=== PATIENT | male | born 1965 | race Hispanic/Latino ===

== ENCOUNTER 2018-01-10 05:50 | Day surgery (SDC) | payer OTHER ==
[~2018-01-10 05:50] MED LIST: ANCEF/STERILE WATER 2 GM/20 ML IV NR
[2018-01-10] MEDS ORDERED: ADRENALIN IV ONE ×2 (06:46→08:15)
[2018-01-10] MEDS ORDERED: NACL BACTERIOSTATIC INFILTRATI ONE (06:51)
[2018-01-10] MEDS ORDERED: SUBLIMAZE ONE ×2 (07:12→07:35)
[2018-01-10] MEDS ORDERED: DIPRIVAN 10 MG/ML IV ONE ×2 (07:29→07:53)
[2018-01-10] MEDS ORDERED: XYLOCAINE MPF 2% ONE (07:29)
[2018-01-10] MEDS ORDERED: NEO SYNEPHRINE/NS Syringe(OR USE) IV ONE (07:30)
[2018-01-10] MEDS ORDERED: LACTATED RINGERS 1,000 ML IV SCH ×2 (07:30→08:00)
[2018-01-10] MEDS ORDERED: VERSED IV NR (07:30)
[2018-01-10] MEDS ORDERED: NEURONTIN PO NR (07:30)
[2018-01-10] MEDS ORDERED: ZOFRAN IV PRN (07:30)
[2018-01-10] MEDS ORDERED: QUELICIN ONE (07:34)
--- NOTE | 2018-01-10 07:45 | Anesthesia Day of Surgery ---
Anesthesia Day of Surgery - Day of Surgery Patient Examined: Yes Patient H&P Reviewed: Yes Patient is NPO: Yes
--- NOTE | 2018-01-10 07:45 | Anesthesia Consultation ---
Anesthesia Consult and Med Hx Date of service: 01/10/18 - Airway Anesthetic Teeth Evaluation: Good ROM Head & Neck: Adequate Mental/Hyoid Distance: Adequate Mallampati Class: Class II Intubation Access Assessment: Probably Good - Pulmonary Exam CTA: Yes - Cardiac Exam Cardiac Exam: RRR - Pre-Operative Health Status ASA Pre-Surgery Classification: ASA2 Proposed Anesthetic Plan: General - Pulmonary Hx Smoking: Yes (STOPPED 2005 , 1 PPD X 15 YRS) Hx Sleep Apnea: No (LULÚ PRE SCREEN HIGH RISK) - Cardiovascular System Hx Hypertension: Yes (X 1 YR) - Endocrine Hx Hypothyroidism: Yes - Other Systems Hx Cancer: No
[2018-01-10] MEDS ORDERED: ePHEDrine 50 MG/5 ML-0.9% NACL IV ONE (08:30)
--- NOTE | 2018-01-10 09:41 | Short Stay Summary ---
Short Stay Documentation Date of service: 01/10/18 - History H&P: obtained from office - Allergies and Medications Current Medications: Allergies No Known Allergies Allergy (Verified 12/20/17 15:08) Home Medications Medication Instructions Recorded Confirmed Last Taken Type AtorvaSTATin [Lipitor] 10 mg PO QHS 12/20/17 12/20/17 Unknown History Levothyroxine [Synthroid] 25 mcg PO QAM 12/20/17 12/20/17 Unknown History Lisinopril/Hydrochlorothiazide 1 each PO DAILY 12/20/17 12/20/17 Unknown History [Zestoretic 10-12.5 mg Tablet] metFORMIN [Glucophage] 500 mg PO BID 12/20/17 12/20/17 Unknown History Active Medications Cefazolin Sodium (Ancef/Sterile Water 2 Gm/20 Ml) 2 gm IV PREOP NR Stop: 01/10/18 23:00 Celecoxib (Celebrex) 200 mg PO PREOP NR Stop: 01/10/18 12:30 Last Admin: 01/10/18 07:37 Dose: 200 mg Gabapentin (Neurontin) 300 mg PO PREOP NR Stop: 01/10/18 12:30 Last Admin: 01/10/18 07:37 Dose: 300 mg Hydromorphone HCl (Dilaudid) 0.5 mg IV Q10MIN PRN PRN Reason: Pain , Severe (7-10) Stop: 01/10/18 12:30 Lactated Ringer's (Lactated Ringers) 1,000 mls @ 100 mls/hr IV DIRECT PEG Last Admin: 01/10/18 07:39 Dose: 100 mls/hr Midazolam HCl (Versed) 2 mg IV PREOP NR Stop: 01/10/18 12:30 Ondansetron HCl (Zofran) 4 mg IV ONCE PRN PRN Reason: Nausea And Vomiting Stop: 01/10/18 12:30 - Brief post op/procedure progress note Date of procedure: 01/10/18 Pre-op diagnosis: persistent right shoulder pain, AC joint arthritis, rotator cuff tear Post-op diagnosis: other (persistent right shoulder pain, acromioclavicluar joint arthritis, recurrent rotator cuff tear, adhesions both intraarticular and subacromial, extensive subacromial bursitis) Procedure: right shoulder arthroscopy, subacromial decompression, distal clavicle excision , debriedement of extensive subacromial bursitis, debriedement of copious adhesions both intraarticular and subacromial space, rotator cuff repair Anesthesia: GETA Findings: as above Surgeon: TESS RUFF Estimated blood loss: none Pathology: none Condition: stable - Hospital course Hospital course: no perioperative complications - Disposition Condition at discharge: Good Disposition: DC-01 TO HOME OR SELFCARE Short Stay Discharge Plan Follow up with: NOY JUAREZ [Other] - 7 Days
[2018-01-10] MEDS ORDERED: ROBINUL ONE (09:43)
[2018-01-10] MEDS ORDERED: DILAUDID ONE (09:43)
[2018-01-10] MEDS ORDERED: ZOFRAN ONE (09:43)
[2018-01-10] MEDS: DILAUDID IV PRN ×2 (10:05→10:16)
--- NOTE | 2018-01-10 10:55 | Operative Report ---
PREOPERATIVE DIAGNOSES: Persistent right shoulder pain, acromioclavicular joint arthritis, recurrent rotator cuff tear. POSTOPERATIVE DIAGNOSES: Persistent right shoulder pain, advanced acromioclavicular joint arthritic change with type 2 acromion causing severe impingement upon the rotator cuff, recurrent rotator cuff tear involving the supraspinatus tendon, extensive subacromial bursitis, copious adhesions located diffusely throughout the intraarticular as well as subacromial space. OPERATIVE PROCEDURE: Right shoulder arthroscopy, subacromial decompression, distal clavicle excision, debridement of extensive subacromial bursitis, debridement of copious adhesions located diffusely throughout the intraarticular and subacromial space followed by revision rotator cuff repair. SURGEON: Arcenio Murray MD. UTILITY FORESTER: None. ANESTHESIA: General plus interscalene block to the operative right upper extremity. PREOPERATIVE ANTIBIOTICS: Ancef 2 grams IV within 1 hour of skin incision. DVT PROPHYLAXIS: Open toe, thigh high compression stockings and SCD pumps to bilateral lower extremities. OPERATIVE INSTRUMENTATION: One metallic Opus rotator cuff anchor with corresponding #2 Cobraided sutures. OPERATIVE COMPLICATIONS: None. OPERATIVE HISTORY AND PHYSICAL: This is a 52-year-old male, who injured his right shoulder at work approximately 6 months ago. The patient continues to have persistent pain and discomfort and marked limitation with normal activities of daily living, which has failed to improve despite extensive nonoperative treatment. MRI scan was performed, which was positive for acromioclavicular joint arthritis as well as recurrent rotator cuff tear. The patient's MRI findings and diagnosis were discussed at length. After making sure the patient understood the diagnosis all his questions were answered. We then discussed treatment alternatives of surgical and nonsurgical including risks and benefits of both. After a long lengthy discussion, the patient opted to proceed with operative intervention. This will entail a right shoulder arthroscopy, subacromial decompression, clavicle excision, revision of rotator cuff repair and surgery as indicated. The risks of which were discussed to include, but not exclusive of infection, blood loss, nerve damage, loss of range of motion, persistent pain. Again, the patient understood, all of his questions answered, he wished to proceed with operative intervention. OPERATIVE PROCEDURE: The patient was seen in the preoperative holding room area at which point informed consent was reviewed and appropriate right upper extremity was identified and then marked. Anesthesia then performed an interscalene block the right upper extremity. After confirmation of adequate anesthesia of the right upper extremity, the patient was then brought back to the operating room and placed supine on standard operating room table with the beach chair positioner already in place. General anesthesia was then administered and an endotracheal tube was inserted. After confirmation of appropriate general anesthesia and checking appropriate placement on the endotracheal tube. We then made sure that all bony prominences were well padded. There were no wrinkles in the compression stockings on bilateral lower extremities and SCD pumps were applied to bilateral lower extremities. A pillow was placed beneath the posterior aspect of bilateral thigh was placed in slight flexion of the hips and knees because of the popliteal fossa was free and clear. The patient was then sat up in the beach chair position using the beach chair position, which was already in place. His head was secured in nice neutral position. The well left arm was secured in neutral position on the patient's side with the aid of the well arm williamson. The right upper extremity was then examined under anesthesia. The patient was seen to have full range of motion and there was no evidence of instability. On examination under anesthesia, the right upper extremity was then prepped and draped in the usual sterile fashion. After prepping and draping, a timeout was called and the right upper extremity was identified, which again had been marked in the preoperative holding area. We began the procedure by first using a #15-blade after skin incision and the blunt trocar was inserted into intra-articular aspect of the glenohumeral joint. This went without difficulty or damage to articular cartilage. Once in place, the arthroscopic camera needed to be placed in the anterior aspect of the shoulder and established an anterior portal by first inserting 18 gauge spinal needle in the subscap and biceps tendons under direct arthroscopic visualization. Once confirmed to be in appropriate position, a 15-blade was then used to establish anteromedial portal. Once the portals were established the blunt trocar was inserted widened portal site. Following the arthroscopic probe, we began at arthroscopy. The anterior aspect of the shoulder and the patient had partial thickness tear of the subscapularis and encompassing well less than 10% with the tendons gently debrided using a 4.0 meniscal shaver. Middle glenohumeral ligament was seen to be intact. There were no tears in the anterior superior or posterior labrum. There was copious amounts of adhesions located throughout the area of the anterior labrum as well as within the rotator cuff and interval, which was gently debrided using a 4.0 meniscal shaver. Hemostasis was achieved with the Arthrocare ablation wand. There was grade 1 articular cartilage loss of the glenohumeral joint. There was a normal bare area of the Hill-Sachs lesion. There were no loose bodies in the axillary recess. Inspection of the biceps tendon showed to be intact. Next, the shoulder was in its normal relation. Inspection of the rotator cuff showed to be full thickness tearing of the supraspinatus tendon. There is a negative drive-through sign. Normal bare area without Hill-Sachs lesion. Arthroscopic pump was then turned off. There was good hemostasis. Once this was confirmed, the extraneous fluid was suctioned from the glenohumeral joint using arthroscopic cannula. Following this, arthroscopic instrumentation was removed from the glenohumeral joint then placed in the subacromial space and the subacromial space saw there was severe extensive subacromial bursitis. A third incision made in the lateral aspect of the shoulder along the distal clavicle away from the axillary nerve. Once the incision was made, the extensive subacromial bursitis was debrided using a 4.0 meniscal shaver. Hemostasis was achieved with Arthrocare ablation wand. Following this, the arm was placed to full range of motion. Direct arthroscopic visualization saw there was severe impingement of the rotator cuff undersurface of the acromion and the distal clavicle. The arthroscopic cannula were then placed in subacromial space and also in the subacromial space saw there was extensive subacromial bursitis. This was gently debrided using a 4.0 meniscal shaver and hemostasis was achieved with Arthrocare ablation wand. Once completed and was placed a full range of motion was tolerated severe impingement with rotator cuff undersurface of the acromion and the distal clavicle. The soft tissue was removed from the undersurface of the acromion using Arthrocare ablation wand and then using the 4.0 hooded barrel bur. Subacromial decompression in standard fashion with an inferior, superior, posterior, anterior making sure not to leave any residual anterior hook. Turned our attention to the distal clavicle, which was also seen to be arthritic and contributing to impingement. The distal clavicle excision was carried out using 4.0 hooded barrel bur to a depth of approximately 6-8 mm. Once completed, the arm was again placed through a full range of motion. There was no further impingement. The rotator cuff undersurface of the acromion and distal clavicle. Following this, we turned our attention to the rotator cuff itself, which was seen to be a recurrent full thickness tear involving the supraspinatus tendon. The atrophic edge, which was debrided using a series of basket punches and 4.0 meniscal shaver down to a nice smooth stable healthy remaining tissue. The soft tissue was removed from the rotator cuff footprint of the humeral head. Then, using the Olympus suture passer, we passed #2 Quill braided suture in a horizontal mattress type fashion and then tapped by hand and then inserted one metallic clip was rotator cuff anchor with the #2 Coblator suture. Anatomical repair and rotator cuff back down to the rotator cuff footprint. Once repair was made, the repair was probed and seen to be stable and was placed in full range of motion was good. Excellent stability of the repair without any further impingement. The rotator cuff undersurface of the acromion and distal clavicle. When the arthroscopic pump was turned off to make sure there was good hemostasis. Once this was confirmed excellent suction of the subacromial space using arthroscopic cannula as well as arthroscopic instrumentation was removed. The 3 portal sites were closed with 3-0 nylon in simple fashion. Adaptic, 4 x 4s, ABD, Medipore dressing, small abduction sling and Cryo/Cuff blanket was applied. The patient was sat down the Beach in a supine position, was from general anesthesia without complications to the recovery room in stable condition. Standard postoperative orders were written. JOB# [id number]
[2018-01-10 11:58] VITALS: BP 123/84
[2018-01-10] MEDS ORDERED: DILAUDID PO SCH (12:00)
--- NOTE | 2018-01-10 19:39 | Post Anesthesia Evaluation ---
- Post Anesthesia Evaluation Patient Participated: Yes Airway Patent: Yes Stable Respiratory Function: Yes Nausea/Vomiting: No Temp > 96.8F: Yes Pain Manageable: Yes Adequeate Hydration: Yes Anesthesia Complications: No
== END 2018-01-10 12:23 | disposition home or self-care (01) ==
LOC: OR 05:50
PROVIDERS: ATTEND Orthopaedic Surgery
DX: S46.011A Strain of muscle(s) and tendon(s) of the rotator cuff of right shoulder, initial encounter (principal); S46.811A Strain of other muscles, fascia and tendons at shoulder and upper arm level, right arm, initial encounter; M75.51 Bursitis of right shoulder; M19.011 Primary osteoarthritis, right shoulder; I10 Essential (primary) hypertension; E03.9 Hypothyroidism, unspecified; Z79.899 Other long term (current) drug therapy; X58.XXXA Exposure to other specified factors, initial encounter; Y93.89 Activity, other specified; Y92.89 Other specified places as the place of occurrence of the external cause; Y99.8 Other external cause status; Z87.891 Personal history of nicotine dependence
CPT/HCPCS: 29824; 29826; 29827; 82962; C1713; J0171; J0330; J0690; J1170; J2250; J2370; J2405; J2704; J3010; J7120; L1830